=== PATIENT | male | born 1960 | race Caucasian/White ===

== ENCOUNTER 2020-11-05 18:59 | Emergency (ER) | payer BC, OTHER ==
[2020-11-05 19:22] VITALS: TEMP 98; BMI 28.7
[2020-11-05 20:49] LABS: BASO % 0.3 % (0-2.0); EOS % 0.6 % (0-4.5); HEMATOCRIT 46.5 % (35.4-49); HEMOGLOBIN 15.9 GM/dL (11.7-16.9); LYMPH % 19.4 % (8-40); MCH 30.3 pg (25.7-33.7); MCHC 34.1 g/dl (32.0-35.9); MEAN CELL VOLUME 88.9 fl (80-96); MEAN PLT VOLUME 7.3 fl (7.5-11.1); NEUT % 72.7 % (42.8-82.8); PLATELET COUNT 227 K/MM3 (134-434); RBC 5.24 M/mm3 (4.00-5.60); RDW 13.7 % (11.9-15.9); WHITE BLOOD COUNT 6.7 K/mm3 (4.0-10.0)
[2020-11-05] MEDS ORDERED: LIDOCAINE 5% TOPICAL PATCH TP ONE (21:04)
[2020-11-05 21:07] LABS: CHLORIDE 106 mmol/L (98-107); POTASSIUM 4.2 mmol/L (3.5-5.1); SODIUM 139 mmol/L (136-145)
[2020-11-05] MEDS ORDERED: LIDOCAINE 5% TOPICAL PATCH ONE (21:10)
[2020-11-05 21:11] LABS: ALBUMIN 3.6 g/dl (3.4-5.0); CALCIUM 9.1 mg/dL (8.5-10.1)
[2020-11-05 21:12] LABS: ANION GAP 6 MMOL/L (8-16); BLOOD UREA NITROGEN 24.3 mg/dL (7-18); CO2 27 mmol/L (21-32); GLUCOSE,RANDOM 76 mg/dL (74-106)
[2020-11-05 21:14] LABS: SGPT/ALT 34 U/L (13-61)
[2020-11-05 21:15] LABS: CREATININE 0.9 mg/dL (0.55-1.3); SGOT/AST 26 U/L (15-37)
[2020-11-05 21:16] LABS: BILIRUBIN,TOTAL 0.5 mg/dL (0.2-1)
[2020-11-05 21:17] LABS: ALK PHOS 79 U/L (45-117)
[2020-11-05] MEDS ORDERED: LIDOCAINE PATCH REMOVAL MC SCH (22:00)
[2020-11-05 23:01] VITALS: BP 130/83; PULSE 79
[2020-11-06] MEDS ORDERED: LIDOCAINE PATCH REMOVAL MC ONE (09:00)
== END 2020-11-05 23:01 | disposition home or self-care (01) ==
LOC: JER 18:59
DX: E16.2 Hypoglycemia, unspecified (principal)
CPT/HCPCS: 36415; 73070-TC-LT-FY; 80053; 82550; 82553; 82962; 84484; 85025; 93005; 93010; 99285-25